=== PATIENT | female | born 1935 | race Caucasian/White ===

== ENCOUNTER → 2018-05-18 | Outpatient (CLI) | payer OTHER | LOC: HYPER 06:55 | DX: T81.89XA Other complications of procedures, not elsewhere classified, initial encounter (principal); L97.822 Non-pressure chronic ulcer of other part of left lower leg with fat layer exposed; C44.99 Other specified malignant neoplasm of skin, unspecified; D18.01 Hemangioma of skin and subcutaneous tissue; L82.1 Other seborrheic keratosis; L57.0 Actinic keratosis; I73.00 Raynaud's syndrome without gangrene; I73.9 Peripheral vascular disease, unspecified; M19.90 Unspecified osteoarthritis, unspecified site; M81.0 Age-related osteoporosis without current pathological fracture; Z98.49 Cataract extraction status, unspecified eye; Y92.89 Other specified places as the place of occurrence of the external cause; Y83.8 Other surgical procedures as the cause of abnormal reaction of the patient, or of later complication, without mention of misadventure at the time of the procedure ==

== ENCOUNTER → 2018-06-01 | Outpatient (CLI) | payer OTHER | LOC: HYPER 05-26 16:13 | DX: T81.89XD Other complications of procedures, not elsewhere classified, subsequent encounter (principal); L97.822 Non-pressure chronic ulcer of other part of left lower leg with fat layer exposed; L57.0 Actinic keratosis; C44.99 Other specified malignant neoplasm of skin, unspecified; D18.01 Hemangioma of skin and subcutaneous tissue; L82.1 Other seborrheic keratosis; M19.90 Unspecified osteoarthritis, unspecified site; M81.0 Age-related osteoporosis without current pathological fracture; Z85.828 Personal history of other malignant neoplasm of skin; Y83.8 Other surgical procedures as the cause of abnormal reaction of the patient, or of later complication, without mention of misadventure at the time of the procedure ==